=== PATIENT | male | born 1935 | race Caucasian/White ===

== ENCOUNTER 2017-01-31 16:50 | Emergency (ER) | payer MEDICARE, OTHER ==
--- NOTE | 2017-01-31 19:19 | EDM.PDOC ---
ED HISTORY OF PRESENT ILLNESS - General Chief Complaint: Cardiovascular Problem Stated Complaint: PACEMAKER ADRIK MARQUISE COELLO Time Seen by Provider: 01/31/17 19:15 Source of Information: Reports: Patient History Limitations: Reports: No limitations - History of Present Illness INITIAL COMMENTS - FREE TEXT/NARRATIVE: c/o "buzz" in heart denies chest pain. Tech from [place] arrived to Dx the problem. - Related Data Allergies/ADRs: Allergies Allergy/AdvReac Type Severity Reaction Status Date / Time No Known Allergies Allergy Verified 01/31/17 17:22 Home Meds: Home Meds Aspirin [Halfprin] 81 mg PO DAILY 01/31/17 [History] Bisacodyl [Dulcolax] 2 tab PO DAILY PRN 01/31/17 [History] Carvedilol [Coreg] 12.5 mg PO BID 01/31/17 [History] Dutasteride [Avodart] 0.5 mg PO DAILY 01/31/17 [History] Hydrochlorothiazide 25 mg PO DAILY 01/31/17 [History] Multivitamin [Multiple Vitamins] 1 tab PO DAILY 01/31/17 [History] NIFEdipine [Nifedipine ER] 30 mg PO DAILY 01/31/17 [History] [place]-3/DHA/Epa/Fish Oil [Fish Oil 1,400 MG Softgel] 1 cap PO DAILY 01/31/17 [ History] Quinapril HCl [Accupril] 20 mg PO DAILY 01/31/17 [History] Simvastatin [Zocor] 20 mg PO BEDTIME 01/31/17 [History] Past Medical History HEENT History: Reports: Impaired vision Other HEENT History: uses bifocals for reading only Cardiovascular History: Reports: CAD, High cholesterol, Hypertension, Pacemaker Respiratory History: Reports: None Gastrointestinal History: Reports: Chronic constipation Genitourinary History: Reports: Prostate disorder Musculoskeletal History: Reports: None Neurological History: Reports: None Psychiatric History: Reports: None Endocrine/Metabolic History: Reports: None Dermatologic History: Reports: None - Infectious Disease History Infectious Disease History: Reports: Chicken pox, Measles - Past Surgical History HEENT Surgical History: Reports: Cataract surgery Other HEENT Surgeries/Procedures: bilat. cataract surgery Cardiovascular Surgical History: Reports: None GI Surgical History: Reports: None Male Surgical History: Reports: None Social & Family History - Tobacco Use Smoking Status *Q: Never Smoker Second Hand Smoke Exposure: No - Caffeine Use Caffeine Use: Reports: Coffee Other Caffeine Use: 2 to 3 cups a day - Recreational Drug Use Recreational Drug Use: No ED ROS GENERAL - Review of Systems Review Of Systems: ROS reveals no pertinent complaints other than HPI. ED EXAM, GENERAL - Physical Exam Exam: See Below Exam Limited By: No limitations General Appearance: alert, WD/WN, no apparent distress Ears: hearing grossly normal Throat/Mouth: Normal voice, No airway compromise Head: atraumatic Neck: non-tender, full range of motion Respiratory/Chest: no respiratory distress Cardiovascular: regular rate, rhythm, other (paced) GI/Abdominal: soft, non tender Neurological: alert, oriented, normal cognition, normal gait, no motor/sensory deficits Psychiatric: normal affect, normal mood Skin Exam: Warm, Dry Lymphatic: no adenopathy Course - Vital Signs Last Recorded V/S: Last Vital Signs Temp 36.6 C 01/31/17 17:00 Pulse 66 01/31/17 17:00 Resp 16 01/31/17 17:00 BP 176/84 H 01/31/17 17:00 Pulse Ox 97 01/31/17 17:00 - Orders/Labs/Meds Orders: Active Orders 24 hr Category Date Time Status EKG Documentation Completion [RC] URGENT Care 01/31/17 17:05 Active - Re-Assessments/Exams Free Text/Narrative Re-Assessment/Exam: 01/31/17 19:45 pt continue to be Sx free without chest pain/SOB, states feels fine. Tech gave all's well with pacemaker Dx. Departure - Departure Time of Disposition: 19:46 Disposition: Home, Self-Care 01 Condition: good Clinical Impression: Pacemaker malfunction Qualifiers: Encounter type: initial encounter Qualified Code(s): T82.111A - Breakdown ( mechanical) of cardiac pulse generator (battery), initial encounter Instructions: Pacemaker Implantation, Care After Forms: ED Department Discharge Additional Instructions: 1) follow up with newspaper illustrator 2) return if there is any changes or concerns
--- NOTE | 2017-02-04 11:19 | EKG ---
01/31/2017 - EMI FRANCIS - TIME: 1705 hours. EKG showed ventricular paced rhythm. [facility] /[id number]
== END 2017-01-31 20:05 | disposition home or self-care (01) ==
LOC: DL.ED 16:50
CPT/HCPCS: 93005; 93010; 99283; 99284

== ENCOUNTER 2019-07-24 09:18 | Emergency (ER) | payer MEDICARE, OTHER ==
[2019-07-24] MEDS ORDERED: Sodium Chloride 0.9% 10 ML Syringe FLUSH PRN (09:45)
[2019-07-24] MEDS ORDERED: Diltiazem 25 MG/5 ML SDV IVPUSH ONE (09:47)
--- NOTE | 2019-07-24 12:23 | EDM.PDOC ---
ED HPI GENERAL MEDICAL PROBLEM - General Chief Complaint: Genitourinary Problem Stated Complaint: CATHETER IS PLUGGED Time Seen by Provider: 07/24/19 12:23 Source of Information: Reports: Patient, Family, RN, RN Notes Reviewed History Limitations: Reports: No Limitations - History of Present Illness INITIAL COMMENTS - FREE TEXT/NARRATIVE: Pt to ER with c/o plugged suprapubic catheter. Patient's states she has been irrigating the catheter every other day with sterile water per urology. Patient states he felt pressure at 0200 this morning and got up to use the rest room (does still urinate through the penis as well). States catheter was not draining. attempted to irrigate and there was resistance, with the sterile water coming back out. Denies any other problems, or pain. Onset: Today, Sudden - Related Data Allergies Allergy/AdvReac Type Severity Reaction Status Date / Time No Known Allergies Allergy Verified 07/24/19 10:24 Home Meds: Home Meds Bisacodyl [Dulcolax] 2 tab PO DAILY PRN 01/31/17 [History] Carvedilol [Coreg] 12.5 mg PO BID 01/31/17 [History] Hydrochlorothiazide 25 mg PO DAILY 01/31/17 [History] Multivitamin [Multiple Vitamins] 1 tab PO DAILY 01/31/17 [History] NIFEdipine [Nifedipine ER] 30 mg PO DAILY 01/31/17 [History] [place]-3/DHA/Epa/Fish Oil [Fish Oil 1,400 MG Softgel] 1 cap PO DAILY 01/31/17 [ History] Quinapril HCl [Accupril] 20 mg PO DAILY 01/31/17 [History] Simvastatin [Zocor] 20 mg PO BEDTIME 01/31/17 [History] Apixaban [Eliquis] 2.5 mg PO DAILY 05/05/19 [History] Aspirin [Ecotrin EC] 81 mg PO DAILY 05/05/19 [History] Past Medical History HEENT History: Reports: Impaired Vision Other HEENT History: uses bifocals for reading only Cardiovascular History: Reports: CAD, High Cholesterol, Hypertension, Pacemaker Respiratory History: Reports: None Gastrointestinal History: Reports: Chronic Constipation Genitourinary History: Reports: Prostate Disorder Musculoskeletal History: Reports: None Neurological History: Reports: None Psychiatric History: Reports: None Endocrine/Metabolic History: Reports: None Hematologic History: Reports: None Immunologic History: Reports: None Oncologic (Cancer) History: Reports: None Dermatologic History: Reports: None - Infectious Disease History Infectious Disease History: Reports: Chicken Pox, Measles - Past Surgical History HEENT Surgical History: Reports: Cataract Surgery Social & Family History - Family History Family Medical History: Noncontributory - Tobacco Use Smoking Status *Q: Never Smoker Second Hand Smoke Exposure: No - Caffeine Use Caffeine Use: Reports: Coffee Other Caffeine Use: 2 to 3 cups a day - Recreational Drug Use Recreational Drug Use: No ED ROS GENERAL - Review of Systems Review Of Systems: ROS reveals no pertinent complaints other than HPI. ED EXAM, RENAL/ - Physical Exam Exam: See Below Exam Limited By: No Limitations General Appearance: Alert, WD/WN, No Apparent Distress Eye Exam: Bilateral Eye: EOMI, Normal Inspection Ears: Normal External Exam, Hearing Grossly Normal Nose: Normal Inspection, Normal Mucosa, No Blood Throat/Mouth: Normal Inspection, Normal Lips, Normal Teeth, Normal Gums, Normal Oropharynx, Normal Voice, No Airway Compromise Head: Atraumatic, Normocephalic Neck: Normal Inspection, Supple, Non-Tender, Full Range of Motion Respiratory/Chest: No Respiratory Distress, Lungs Clear, Normal Breath Sounds, No Accessory Muscle Use, Chest Non-Tender Cardiovascular: Normal Peripheral Pulses, Regular Rate, Rhythm, No Edema, No Gallop, No JVD, No Murmur, No Rub GI/Abdominal: Normal Bowel Sounds, Soft, Non-Tender, No Organomegaly, No Distention, No Abnormal Bruit, No Mass, Other (suprapubic catheter) (Male) Exam: Normal Inspection, Circumcised, Other (Suprapubic catheter with no urine drainage) Rectal (Males) Exam: Deferred Back Exam: Normal Inspection, Full Range of Motion, NT Extremities: Normal Inspection, Normal Range of Motion, Non-Tender, Normal Capillary Refill, No Pedal Edema Neurological: Alert, Oriented, CN II-XII Intact, Normal Cognition, Normal Gait, Normal Reflexes, No Motor/Sensory Deficits Psychiatric: Normal Affect, Normal Mood Skin Exam: Warm, Dry, Intact, Normal Color, No Rash, Other (minimal green drainage from around the site of the suprapubic catheter.) Lymphatic: No Adenopathy Course - Vital Signs Last Recorded V/S: Last Vital Signs Temp 97.8 F 07/24/19 10:16 Pulse 68 07/24/19 10:33 Resp 16 07/24/19 10:33 BP 178/86 H 07/24/19 10:33 Pulse Ox 98 07/24/19 10:33 - Orders/Labs/Meds Orders: Active Orders 24 hr Category Date Time Status EKG Documentation Completion [RC] STAT Care 07/24/19 09:45 Inactive Peripheral IV Care [RC] . DIRECTED Care 07/24/19 09:46 Inactive Cervical Spine wo Cont [CT] Urgent Exams 07/24/19 09:46 Stop Req Head wo Cont [CT] Stat Exams 07/24/19 09:46 Stop Req Meds: Medications Discontinued Medications Generic Name Dose Route Start Last Admin Trade Name Freq PRN Reason Stop Dose Admin Diltiazem HCl 25 mg 07/24/19 09:47 Diltiazem IVPUSH 07/24/19 09:48 ONETIME ONE Sodium Chloride 10 ml 07/24/19 09:45 Saline Flush FLUSH ASDIRECTED PRN Keep Vein Open Departure - Departure Time of Disposition: 12:58 Disposition: Home, Self-Care 01 Condition: Fair Clinical Impression: Urinary catheter change required - Discharge Information *PRESCRIPTION DRUG MONITORING PROGRAM REVIEWED*: No *COPY OF PRESCRIPTION DRUG MONITORING REPORT IN PATIENT CHAD: No Instructions: Indwelling Urinary Catheter Care, Adult Forms: ED Department Discharge Additional Instructions: Flush catheter every other day as instructed by Urology Drink plenty of water Follow up with Urology - My Orders Last 24 Hours: My Active Orders 07/24/19 09:45 EKG Documentation Completion [RC] STAT 07/24/19 09:46 Peripheral IV Care [RC] . DIRECTED Cervical Spine wo Cont [CT] Urgent Head wo Cont [CT] Stat - Assessment/Plan Last 24 Hours: My Active Orders 07/24/19 09:45 EKG Documentation Completion [RC] STAT 07/24/19 09:46 Peripheral IV Care [RC] . DIRECTED Cervical Spine wo Cont [CT] Urgent Head wo Cont [CT] Stat
== END 2019-07-24 13:11 | disposition home or self-care (01) ==
LOC: DL.ED 09:18
DX: T83.098A Other mechanical complication of other urinary catheter, initial encounter (principal); I10 Essential (primary) hypertension; E78.00 Pure hypercholesterolemia, unspecified; Z79.899 Other long term (current) drug therapy; Z79.82 Long term (current) use of aspirin
CPT/HCPCS: 51703; 99283-25

== ENCOUNTER 2020-09-17 17:49 | Emergency (ER) | payer MEDICARE, OTHER ==
--- NOTE | 2020-09-17 18:43 | EDM.PDOC ---
<Max Ledezma - Last Filed: 09/17/20 19:08> ED HPI GENERAL MEDICAL PROBLEM - General Chief Complaint: Genitourinary Problem Stated Complaint: CATHETER, PENIS HURTS Time Seen by Provider: 09/17/20 18:43 Source of Information: Reports: Patient, RN, RN Notes Reviewed History Limitations: Reports: No Limitations - History of Present Illness INITIAL COMMENTS - FREE TEXT/NARRATIVE: Pt presents to ER complaining of potential UTI as he has a some pain in his penis. He has suprapubic and they irrigate it every other night, was last irrigated night before last. He had the catheter changed Aug 28. His catheter is draining clear yellow urine in the tubing and bag, but the drain sponge around the suprapubic stoma is soaked in urine along with his boxers and lower shirt. Denies any fever or chills. Denies any covid testing or covid symptoms such as shortness of breath, cough, sore throat, nausea, vomiting, abdominal pain or diarrhea. Onset: Gradual Duration: Day(s): (1), Getting Worse Quality: Reports: Burning, Same as Previous Episode Severity: Moderate Improves with: Reports: None Worsens with: Reports: None - Related Data Allergies Allergy/AdvReac Type Severity Reaction Status Date / Time No Known Allergies Allergy Verified 09/17/20 18:15 Home Meds: Home Meds Bisacodyl [Dulcolax] 2 tab PO DAILY PRN 01/31/17 [History] Carvedilol [Coreg] 12.5 mg PO BID 01/31/17 [History] Hydrochlorothiazide 25 mg PO DAILY 01/31/17 [History] Multivitamin [Multiple Vitamins] 1 tab PO DAILY 01/31/17 [History] NIFEdipine [Nifedipine ER] 30 mg PO DAILY 01/31/17 [History] [place]-3/DHA/Epa/Fish Oil [Fish Oil 1,400 MG Softgel] 1 cap PO DAILY 01/31/17 [History] Quinapril HCl [Accupril] 20 mg PO DAILY 01/31/17 [History] Simvastatin [Zocor] 20 mg PO BEDTIME 01/31/17 [History] Apixaban [Eliquis] 2.5 mg PO DAILY 05/05/19 [History] Aspirin [Ecotrin EC] 81 mg PO DAILY 05/05/19 [History] Past Medical History HEENT History: Reports: Impaired Vision Other HEENT History: uses bifocals for reading only Cardiovascular History: Reports: CAD, High Cholesterol, Hypertension, Pacemaker Respiratory History: Reports: None Gastrointestinal History: Reports: Chronic Constipation Genitourinary History: Reports: Prostate Disorder Musculoskeletal History: Reports: None Neurological History: Reports: None Psychiatric History: Reports: None Endocrine/Metabolic History: Reports: None Hematologic History: Reports: None Immunologic History: Reports: None Oncologic (Cancer) History: Reports: None Dermatologic History: Reports: None - Infectious Disease History Infectious Disease History: Reports: Chicken Pox, Measles - Past Surgical History HEENT Surgical History: Reports: Cataract Surgery Social & Family History - Family History Family Medical History: Noncontributory - Tobacco Use Tobacco Use Status *Q: Never Tobacco User - Caffeine Use Caffeine Use: Reports: Coffee Other Caffeine Use: 2 to 3 cups a day - Recreational Drug Use Recreational Drug Use: No - Living Situation & Occupation Living situation: Reports: with Spouse Occupation: Retired ED ROS GENERAL - Review of Systems Review Of Systems: Comprehensive ROS is negative, except as noted in HPI. ED EXAM, RENAL/ - Physical Exam Exam: See Below Exam Limited By: No Limitations General Appearance: Alert, WD/WN, No Apparent Distress Head: Atraumatic, Normocephalic Respiratory/Chest: No Respiratory Distress GI/Abdominal: Normal Bowel Sounds, Soft, Non-Tender, No Organomegaly, No Distention, No Abnormal Bruit, No Mass, Other (Suprapubic catheter with no peripheral erythema or leakage from the stoma.) Back Exam: No: CVA Tenderness (L), CVA Tenderness (R) Extremities: Normal Inspection Neurological: Alert, Oriented, No Motor/Sensory Deficits Psychiatric: Normal Mood Skin Exam: Warm, Dry, Intact, Normal Color, No Rash Course - Re-Assessments/Exams Free Text/Narrative Re-Assessment/Exam: 09/17/20 19:03 Care of pt transferred to Shelbie Marr NP at 1900HR shift change. Departure - Departure Disposition: Home, Self-Care 01 Clinical Impression: Urinary catheter change required Blocked urinary catheter Qualifiers: Encounter type: initial encounter Qualified Code(s): T83.098A - Other mechanical complication of other urinary catheter, initial encounter Suprapubic catheter dysfunction Qualifiers: Encounter type: initial encounter Qualified Code(s): T83.010A - Breakdown (mechanical) of cystostomy catheter, initial encounter - Discharge Information Instructions: Suprapubic Catheter Replacement, Indwelling Urinary Catheter Care, Adult Forms: ED Department Discharge Additional Instructions: Call urology MIRIAM in the morning for catheter change Sepsis Event Note (ED) - Evaluation Sepsis Screening Result: No Definite Risk <Libby aMrr - Last Filed: 09/17/20 21:09> Course - Vital Signs Last Recorded V/S: Last Vital Signs Temp 98.0 F 09/17/20 18:14 Pulse 97 09/17/20 18:14 Resp 18 09/17/20 18:14 BP 183/83 H 09/17/20 18:14 Pulse Ox 98 09/17/20 18:14 - Orders/Labs/Meds Orders: Active Orders 24 hr Category Date Time Status UA RFX NEVAEH AND CULT IF INDIC [URIN] Stat Lab 09/17/20 18:36 Ordered Suprapubic Catheter Management [OM.PC] Routine Oth 09/17/20 18:35 Ordered Meds: Medications Discontinued Medications Generic Name Dose Route Start Last Admin Trade Name Freq PRN Reason Stop Dose Admin Tramadol HCl 50 mg 09/17/20 21:01 Ultram PO 09/17/20 21:02 ONETIME ONE - Re-Assessments/Exams Free Text/Narrative Re-Assessment/Exam: 09/17/20 21:07 Patient unable to void in urinal, states that he usually is able to void in the urinal. Complains of pain in the penis that began earlier today. Patient is having copious amounts of drainage of urine from around the suprapubic catheter. Patient did not bring another catheter with him, and we do not have the type of catheter he needs at our facility. Patient is encouraged to call urology MIRIAM in the morning to have catheter changed. Also unable to aspirate any urine from the suprapubic catheter, is able to be flushed easily but unable to aspirate. 09/17/20 21:09 Bladder scan shows approximately 350 mls in the bladder 09/17/20 21:09 Departure - Departure Time of Disposition: 21:08 Condition: Fair - Discharge Information *PRESCRIPTION DRUG MONITORING PROGRAM REVIEWED*: No *COPY OF PRESCRIPTION DRUG MONITORING REPORT IN PATIENT CHAD: No Sepsis Event Note (ED) - Focused Exam Vital Signs: Vital Signs Temp Pulse Resp BP Pulse Ox 09/17/20 18:14 98.0 F 97 18 183/83 H 98
[2020-09-17] MEDS ORDERED: traMADol 50 MG Tab PO ONE (21:01)
== END 2020-09-17 20:55 | disposition home or self-care (01) ==
LOC: DL.ED 17:49
DX: T83.010A Breakdown (mechanical) of cystostomy catheter, initial encounter (principal); T83.090A Other mechanical complication of cystostomy catheter, initial encounter; I10 Essential (primary) hypertension; E78.00 Pure hypercholesterolemia, unspecified; I25.10 Atherosclerotic heart disease of native coronary artery without angina pectoris; Z79.02 Long term (current) use of antithrombotics/antiplatelets; Z79.82 Long term (current) use of aspirin; Z79.899 Other long term (current) drug therapy
CPT/HCPCS: 99283; A9270

== ENCOUNTER 2022-06-26 18:15 | Emergency (ER) | payer MEDICARE, OTHER ==
[2022-06-26] MEDS: Sodium Chloride 0.9% 10 ML Syringe FLUSH PRN (19:44)
[2022-06-26 20:26] LABS: ANION GAP 15.2 mEq/L (7-13); CHLORIDE,CL 96 mmol/L (98-107); SODIUM,NA 134 mmol/L (136-145)
[2022-06-26 20:35] LABS: ESTIMATED GFR 75 mL/min (>=60)
[2022-06-26 22:15] LABS: CORONAVIRUS COVID-19 NAA NEGATIVE (NEGATIVE)
[2022-06-26] MEDS: Nitrofurantoin Monohydrate/Macrocrystalline 100 MG Cap PO ONE (22:44)
[2022-06-26] MEDS: cefTRIAXone 1 GM, Lidocaine 1% 2.1 ML IM ONE ×2 (22:44)
== END 2022-06-26 23:05 | disposition home or self-care (01) ==
LOC: DL.ED 18:15
DX: N39.0 Urinary tract infection, site not specified (principal); R42 Dizziness and giddiness; E87.6 Hypokalemia; I25.10 Atherosclerotic heart disease of native coronary artery without angina pectoris; E78.00 Pure hypercholesterolemia, unspecified; I10 Essential (primary) hypertension; Z95.0 Presence of cardiac pacemaker; Z79.82 Long term (current) use of aspirin; Z79.899 Other long term (current) drug therapy; Z20.822 Contact with and (suspected) exposure to COVID-19; Z79.01 Long term (current) use of anticoagulants
CPT/HCPCS: 0240U; 36415; 71045; 80053; 81001; 81003; 83735; 83880; 84443; 84484; 85025; 86140; 87086; 87088; 87186; 93005; 93010; 96372; 99284; A9270-GY; J0696; J3490

== ENCOUNTER 2022-11-16 03:10 | Emergency (ER) | payer MEDICARE ==
[2022-11-16] MEDS ORDERED: Levofloxacin 500 MG Tab PO ONE ×2 (03:11→04:40)
[2022-11-16] MEDS ORDERED: Acetaminophen/HYDROcodone 325-10 MG Tab PO ONE (03:41)
[2022-11-16] MEDS ORDERED: Levofloxacin 500 MG Tab ONE (04:56)
== END 2022-11-16 05:20 | disposition home or self-care (01) ==
LOC: DL.ED 03:10
DX: N30.01 Acute cystitis with hematuria (principal); I25.10 Atherosclerotic heart disease of native coronary artery without angina pectoris; I10 Essential (primary) hypertension; E78.00 Pure hypercholesterolemia, unspecified; Z79.899 Other long term (current) drug therapy; Z79.01 Long term (current) use of anticoagulants; Z46.6 Encounter for fitting and adjustment of urinary device
CPT/HCPCS: 51705; 81001; 87086; 87088; 87186; 99283; A9270

== ENCOUNTER 2025-09-25 10:07 | Inpatient (IN) | payer MEDICARE ==
[2025-09-25 11:33] LABS: PLATELET COUNT,PLT 386 10^3/uL (150-450); RED BLOOD CELL COUNT 3.70 10^6/uL (4.6-6.2); WHITE BLOOD CELL COUNT,WBC 42.8 10^3/uL (5.0-10.0)
[2025-09-25 11:48] LABS: APPEARANCE,URINE CLOUDY (CLEAR); GLUCOSE,URINE NEGATIVE (NEGATIVE); OCCULT BLOOD,URINE MODERATE (NEGATIVE)
[2025-09-25 11:55] LABS: ALANINE AMINOTRANSFERASE,ALT 15.0 U/L (16-63); ASPARTATE AMNIOTRANSFERASE,AST 20.0 U/L (15-37); BILIRUBIN TOTAL 0.8 mg/dL (0.2-1.0); BLOOD UREA NITROGEN,BUN 17.0 mg/dL (7-18); CARBON DIOXIDE,CO2 26.0 mmol/L (21-32); CHLORIDE,CL 100.0 mmol/L (98-107); CREATININE 1.31 mg/dL (0.70-1.30); EST CRCL DRUG DOSING (CG) 38.98 mL/min; GLUCOSE RANDOM 131.0 mg/dL (70-99); LACTIC ACID 1.6 mmol/L (0.4-2.0); POTASSIUM,K 3.2 mmol/L (3.5-5.1); PROTEIN TOTAL,TP 7.1 g/dL (6.4-8.2); SODIUM,NA 138.0 mmol/L (136-145)
[2025-09-25 11:57] LABS: A/G RATIO 0.82; ESTIMATED GFR 52.0 mL/min (>=60)
[2025-09-25 11:58] LABS: B-TYPE NATRIURETIC PEPTIDE,BNP 624.0 pg/ml (0-100)
[2025-09-25 12:09] LABS: EPITHELIAL CELLS,URINE NOT SEEN /HPF (NOT SEEN)
[2025-09-25] MEDS: Sodium Chloride 0.9% 10 ML Syringe FLUSH PRN (12:38)
[2025-09-25 12:50] LABS: BAND PERCENT MAN 3 %; LYMPHOCYTES PERCENT MAN 4 % (20-50); MONOCYTES PERCENT MAN 15 % (2-8); SEG NEUTROPHILS PERCENT MAN 78 % (42-75)
[2025-09-25] MEDS ORDERED: Sennosides/Docusate Sodium 50-8.6 MG Tab PO PRN (13:35)
[2025-09-25] MEDS ORDERED: Ondansetron 4 MG/2 ML SDV IVPUSH PRN (13:35)
[2025-09-25 13:57] LABS: INR 1.3 (0.9-1.2); PTT,PARTIAL THROMBOPLSTIN TIME 52.8 SEC (22.0-34.0)
[2025-09-25 14:20] LABS: IRON,FE 7.0 ug/dL (65-175); PERCENT FE SATURATION 2.2 % (20.0-50.0)
[2025-09-25 14:29] LABS: FOLIC ACID 19.6 ng/mL (8.6-58.9)
[2025-09-25] MEDS: Potassium Chloride 10 MEQ Tab.ER PO STA (15:04)
[2025-09-25 19:09] LABS: T4 FREE 1.31 ng/dL (0.76-1.46); TSH ULTRASENSITIVE 0.47 uIU/mL (0.36-3.74)
[2025-09-25] MEDS: Meropenem 1 GM SDV IVPUSH SCH (22:18)
[2025-09-26 05:05] LABS: CORONAVIRUS COVID-19 NAA NEGATIVE (NEGATIVE); INFLUENZA A NAA NEGATIVE (NEGATIVE); INFLUENZA B NAA NEGATIVE (NEGATIVE)
[2025-09-26 06:17] LABS: PLATELET COUNT,PLT 369 10^3/uL (150-450); RED BLOOD CELL COUNT 3.37 10^6/uL (4.6-6.2); WHITE BLOOD CELL COUNT,WBC 37.8 10^3/uL (5.0-10.0)
[2025-09-26 06:41] LABS: ALANINE AMINOTRANSFERASE,ALT 17.0 U/L (16-63); ASPARTATE AMNIOTRANSFERASE,AST 18.0 U/L (15-37); BILIRUBIN TOTAL 0.3 mg/dL (0.2-1.0); BLOOD UREA NITROGEN,BUN 25.0 mg/dL (7-18); CARBON DIOXIDE,CO2 26.0 mmol/L (21-32); CHLORIDE,CL 107.0 mmol/L (98-107); CREATININE 1.03 mg/dL (0.70-1.30); EST CRCL DRUG DOSING (CG) 49.57 mL/min; GLUCOSE RANDOM 138.0 mg/dL (70-99); POTASSIUM,K 3.6 mmol/L (3.5-5.1); PROTEIN TOTAL,TP 6.6 g/dL (6.4-8.2); SODIUM,NA 142.0 mmol/L (136-145)
[2025-09-26 06:47] LABS: A/G RATIO 0.69; ESTIMATED GFR 70.0 mL/min (>=60)
[2025-09-26 06:55] LABS: LYMPHOCYTES PERCENT MAN 2 % (20-50); MONOCYTES PERCENT MAN 22 % (2-8); SEG NEUTROPHILS PERCENT MAN 77 % (42-75)
[2025-09-26] MEDS: Iopamidol 612 MG/ML 100 ML Bottle IVPUSH ONE (07:17)
[2025-09-26] MEDS: Multivitamins with Iron/Calcium/Folic Acid/Minerals Tab PO SCH (10:07)
[2025-09-26] MEDS: Potassium Chloride 10 MEQ Tab.ER PO SCH (10:08)
[2025-09-26] MEDS: Potassium Chloride 10 MEQ Tab.ER PO ONE (14:09)
[2025-09-27 06:25] LABS: PLATELET COUNT,PLT 400 10^3/uL (150-450); RED BLOOD CELL COUNT 3.33 10^6/uL (4.6-6.2); WHITE BLOOD CELL COUNT,WBC 34.0 10^3/uL (5.0-10.0)
[2025-09-27 06:48] LABS: ALANINE AMINOTRANSFERASE,ALT 24.0 U/L (16-63); ASPARTATE AMNIOTRANSFERASE,AST 24.0 U/L (15-37); BILIRUBIN TOTAL 0.4 mg/dL (0.2-1.0); BLOOD UREA NITROGEN,BUN 24.0 mg/dL (7-18); CARBON DIOXIDE,CO2 25.0 mmol/L (21-32); CHLORIDE,CL 107.0 mmol/L (98-107); CREATININE 0.89 mg/dL (0.70-1.30); EST CRCL DRUG DOSING (CG) 57.37 mL/min; GLUCOSE RANDOM 120.0 mg/dL (70-99); POTASSIUM,K 3.5 mmol/L (3.5-5.1); PROTEIN TOTAL,TP 6.5 g/dL (6.4-8.2); SODIUM,NA 143.0 mmol/L (136-145)
[2025-09-27 06:51] LABS: A/G RATIO 0.67; ESTIMATED GFR 82.0 mL/min (>=60)
[2025-09-27 07:07] LABS: BAND PERCENT MAN 1 %; LYMPHOCYTES PERCENT MAN 5 % (20-50); MONOCYTES PERCENT MAN 12 % (2-8); SEG NEUTROPHILS PERCENT MAN 82 % (42-75)
[2025-09-27] MEDS: Potassium Chloride 10 MEQ Tab.ER PO SCH (07:41)
[2025-09-28 06:03] LABS: PLATELET COUNT,PLT 423 10^3/uL (150-450); RED BLOOD CELL COUNT 3.25 10^6/uL (4.6-6.2); WHITE BLOOD CELL COUNT,WBC 20.1 10^3/uL (5.0-10.0)
[2025-09-28 06:36] LABS: ALANINE AMINOTRANSFERASE,ALT 24.0 U/L (16-63); ASPARTATE AMNIOTRANSFERASE,AST 23.0 U/L (15-37); BILIRUBIN TOTAL 0.4 mg/dL (0.2-1.0); BLOOD UREA NITROGEN,BUN 32.0 mg/dL (7-18); CARBON DIOXIDE,CO2 27.0 mmol/L (21-32); CHLORIDE,CL 107.0 mmol/L (98-107); CREATININE 1.01 mg/dL (0.70-1.30); EST CRCL DRUG DOSING (CG) 50.56 mL/min; GLUCOSE RANDOM 109.0 mg/dL (70-99); POTASSIUM,K 4.0 mmol/L (3.5-5.1); PROTEIN TOTAL,TP 6.3 g/dL (6.4-8.2); SODIUM,NA 143.0 mmol/L (136-145)
[2025-09-28 06:37] LABS: A/G RATIO 0.66; ESTIMATED GFR 72.0 mL/min (>=60)
[2025-09-28 06:59] LABS: LYMPHOCYTES PERCENT MAN 10 % (20-50); MONOCYTES PERCENT MAN 14 % (2-8); SEG NEUTROPHILS PERCENT MAN 76 % (42-75)
[2025-09-28] MEDS: Potassium Chloride 10 MEQ Tab.ER PO SCH (09:17)
[2025-09-29 06:28] LABS: BASOPHILS PERCENT AUTO 1.1 % (0.0-1.0); EOSINOPHILS PERCENT AUTO 0.5 % (1.0-3.0); LYMPHOCYTES PERCENT AUTO 12.3 % (20.5-50.1); MONOCYTES PERCENT AUTO 17.9 % (2-8); NEUTROPHILS PERCENT AUTO 68.2 % (42.2-75.2); PLATELET COUNT,PLT 473 10^3/uL (150-450); RED BLOOD CELL COUNT 3.40 10^6/uL (4.6-6.2); WHITE BLOOD CELL COUNT,WBC 15.1 10^3/uL (5.0-10.0)
[2025-09-29 07:01] LABS: ALANINE AMINOTRANSFERASE,ALT 37.0 U/L (16-63); ASPARTATE AMNIOTRANSFERASE,AST 36.0 U/L (15-37); BILIRUBIN TOTAL 0.4 mg/dL (0.2-1.0); BLOOD UREA NITROGEN,BUN 26.0 mg/dL (7-18); CARBON DIOXIDE,CO2 29.0 mmol/L (21-32); CHLORIDE,CL 107.0 mmol/L (98-107); CREATININE 0.89 mg/dL (0.70-1.30); EST CRCL DRUG DOSING (CG) 57.37 mL/min; GLUCOSE RANDOM 108.0 mg/dL (70-99); POTASSIUM,K 3.7 mmol/L (3.5-5.1); PROTEIN TOTAL,TP 5.8 g/dL (6.4-8.2); SODIUM,NA 144.0 mmol/L (136-145)
[2025-09-29 07:02] LABS: A/G RATIO 0.66; ESTIMATED GFR 82.0 mL/min (>=60)
[2025-09-29] MEDS: Potassium Chloride 10 MEQ Tab.ER PO SCH (09:28)
[2025-09-29] MEDS: Multivitamins with Iron/Calcium/Folic Acid/Minerals Tab PO SCH (12:07)
== END 2025-09-29 14:00 | disposition home or self-care (01) | DRG 690 ==
LOC: DL.ED 10:07 → DL.MS 12:54
PROVIDERS: ADMIT Student in an Organized Health Care Education/Training Program; ATTEND Student in an Organized Health Care Education/Training Program
DX: N39.0 Urinary tract infection, site not specified (principal); J90 Pleural effusion, not elsewhere classified; R53.1 Weakness; D72.829 Elevated white blood cell count, unspecified; D50.9 Iron deficiency anemia, unspecified; Z79.899 Other long term (current) drug therapy; E87.6 Hypokalemia; K59.00 Constipation, unspecified; E86.0 Dehydration; H54.7 Unspecified visual loss; I25.10 Atherosclerotic heart disease of native coronary artery without angina pectoris; N42.9 Disorder of prostate, unspecified; E78.00 Pure hypercholesterolemia, unspecified; I10 Essential (primary) hypertension; Z95.0 Presence of cardiac pacemaker; Z98.49 Cataract extraction status, unspecified eye
CPT/HCPCS: 36415; 51705; 71045; 80053; 81001; 82607; 82728; 82746; 83540; 83550; 83605; 83735; 83880; 84439; 84443; 84484; 85025; 85610; 85730; 87040; 87086; 87088; 87186; 93005; 93010; 96361; 96374; 99284; 99285; J0696; J7040; 71260; 74177; 82272; 85014; 85018; 86850; 86900; 86901; 87636; 97161-GP; 97165-GO; 99232; 99238; A9270-GY; J2185; J7030; Q0138; Q9967